=== PATIENT | male | born 1995 | race Caucasian/White ===

== ENCOUNTER → 2018-03-26 | Outpatient (REF) | payer BC ==
[2018-03-26 19:41] LABS: PLATELET COUNT, AUTOMATED 288 K/uL (150-450)
== END ==
PROVIDERS: ATTEND Nurse Practitioner Family
DX: R11.10 Vomiting, unspecified (principal)
CPT/HCPCS: 82040; 82247; 82310; 82374; 82435; 82565; 82947; 84075; 84132; 84155; 84295; 84450; 84460; 84520; 85025

== ENCOUNTER → 2018-03-29 | Outpatient (REF) | payer BC ==
[2018-03-29 12:45] LABS: PLATELET COUNT, AUTOMATED 279 K/uL (150-450)
== END ==
PROVIDERS: ATTEND Family Medicine
DX: R07.9 Chest pain, unspecified (principal); R11.0 Nausea; R53.83 Other fatigue
CPT/HCPCS: 82040; 82247; 82310; 82374; 82435; 82565; 82947; 83036; 84075; 84132; 84155; 84295; 84443; 84450; 84460; 84484; 84520; 85025; 85379; 85651; 86140; 86618

== ENCOUNTER 2018-04-02 01:21 | Emergency (ER) | payer BC ==
--- NOTE | 2018-04-02 01:29 | ER Report ---
History and Physical Time Seen By MD: 01:28 HPI/ROS CHIEF COMPLAINT: Chest tightness, nausea, vomiting, sinus problems HISTORY OF PRESENT ILLNESS: Patient is a 22-year-old male here with complaints of chest tightness which worsened this morning, nausea, vomiting since Thursday , headaches intermittently. Patient reports that his been seen several times by other physicians without a definitive diagnosis. Patient is frustrated that he has not been told what is causing his chest tightness and nausea symptoms. He is afebrile at time of reevaluation, hemodynamically stable and in no acute distress. REVIEW OF SYSTEMS: Constitutional: No fever, no chills. Eyes: No discharge. ENT: No sore throat. Cardiovascular: + chest pain, no palpitations. Respiratory: No cough, no shortness of breath. Gastrointestinal: No abdominal pain, + nausea w/ vomiting. Genitourinary: No hematuria. Musculoskeletal: No back pain. Skin: No rashes. Neurological: + intermittent headache. Allergies: Coded Allergies: No Known Drug Allergies (Unverified , 04/02/18) Home Meds Active Scripts Hydroxyzine Hcl (HYDROXYZINE HCL) 50 Mg Tablet, 50 MG PO QDAY, #30 TAB Prov:ALEXANDRU MUHAMMAD DO 04/02/18 Reported Medications Prednisone (PREDNISONE) 20 Mg Tablet, 20 MG PO QDAY, TAB 04/02/18 Ondansetron (ZOFRAN ODT) 4 Mg Tab.rapdis, 4 MG PO Q8H, TAB.MICHELLE 04/02/18 Promethazine Hcl (PROMETHAZINE HCL) 25 Mg Tablet, 25 MG PO Q8H, TAB 04/02/18 Constitutional Physical Exam General Appearance: The patient is alert, has no immediate need for airway protection and no signs of toxicity. NAD Eyes: Pupils equal and round no pallor or injection. ENT, Mouth: Mucous membranes are moist. Respiratory: There are no retractions, lungs are clear to auscultation. Cardiovascular: Regular rate and rhythm. Gastrointestinal: Abdomen is soft and non tender, no masses, bowel sounds normal. Neurological: No focal deficits Skin: Warm and dry, no rashes. Musculoskeletal: Neck is supple non tender. Extremities are nontender, nonswollen and have full range of motion. DIFFERENTIAL DIAGNOSIS: After history and physical exam differential diagnosis was considered for chest pain including but not limited to myocardial ischemia, pericarditis pulmonary embolus, chest wall pain, pleural inflammation and pulmonary infectious causes.shortness of breath including but not limited to pulmonary infectious process, COPD, asthma, pulmonary embolus and congestive heart failure. Medical Decision Making Data Points Laboratory Hematology Test 04/02/18 01:50 Red Blood Count 5.36 M/uL (4.00-5.60) Mean Corpuscular Volume 83.6 fL (80.0-96.0) Mean Corpuscular Hemoglobin 30.8 pg (26.0-33.0) Mean Corpuscular Hemoglobin Concent 36.8 g/dL (32.0-36.0) Red Cell Distribution Width 12.8 % (11.5-14.5) Mean Platelet Volume 7.2 fL (7.2-11.1) Neutrophils (%) (Auto) 76.7 % (39.4-72.5) Lymphocytes (%) (Auto) 16.0 % (17.6-49.6) Monocytes (%) (Auto) 6.5 % (4.1-12.4) Eosinophils (%) (Auto) 0.3 % (0.4-6.7) Basophils (%) (Auto) 0.5 % (0.3-1.4) Nucleated RBC Relative Count (auto) 0.1 /100WBC Neutrophils # (Auto) 6.6 K/uL (2.0-7.4) Lymphocytes # (Auto) 1.4 K/uL (1.3-3.6) Monocytes # (Auto) 0.6 K/uL (0.3-1.0) Eosinophils # (Auto) 0.0 K/uL (0.0-0.5) Basophils # (Auto) 0.0 K/uL (0.0-0.1) Nucleated RBC Absolute Count (auto) 0.01 K/uL Erythrocyte Sedimentation Rate 1 mm/HOUR (0-15) D-Dimer Quantitative (PE/DVT) 0.28 ug/ml (0-0.50) Sodium Level 137 mmol/L (137-145) Potassium Level 4.0 mmol/L (3.5-5.0) Chloride Level 100 mmol/L (98-107) Carbon Dioxide Level 23 mmol/L (22-30) Blood Urea Nitrogen 9 mg/dl (9-21) Creatinine 1.00 mg/dl (0.66-1.25) Glomerular Filtration Rate Calc > 60.0 Random Glucose 109 mg/dl (75-110) Calcium Level 9.7 mg/dl (8.4-10.2) Total Bilirubin 1.4 mg/dl (0.2-1.3) Aspartate Amino Transf (AST/SGOT) 20 U/L (0-35) Alanine Aminotransferase (ALT/SGPT) 33 U/L (0-56) Alkaline Phosphatase 38 U/L (0-126) Troponin I < 0.012 ng/ml Total Protein 7.7 g/dl (6.3-8.2) Albumin 4.8 g/dl (3.5-5.0) Chemistry Test 04/02/18 01:50 White Blood Count 8.6 k/uL (4.5-11.0) Red Blood Count 5.36 M/uL (4.00-5.60) Hemoglobin 16.5 g/dL (14.0-18.0) Hematocrit 44.8 % (42.0-52.0) Mean Corpuscular Volume 83.6 fL (80.0-96.0) Mean Corpuscular Hemoglobin 30.8 pg (26.0-33.0) Mean Corpuscular Hemoglobin Concent 36.8 g/dL (32.0-36.0) Red Cell Distribution Width 12.8 % (11.5-14.5) Platelet Count 274 K/uL (150-450) Mean Platelet Volume 7.2 fL (7.2-11.1) Neutrophils (%) (Auto) 76.7 % (39.4-72.5) Lymphocytes (%) (Auto) 16.0 % (17.6-49.6) Monocytes (%) (Auto) 6.5 % (4.1-12.4) Eosinophils (%) (Auto) 0.3 % (0.4-6.7) Basophils (%) (Auto) 0.5 % (0.3-1.4) Nucleated RBC Relative Count (auto) 0.1 /100WBC Neutrophils # (Auto) 6.6 K/uL (2.0-7.4) Lymphocytes # (Auto) 1.4 K/uL (1.3-3.6) Monocytes # (Auto) 0.6 K/uL (0.3-1.0) Eosinophils # (Auto) 0.0 K/uL (0.0-0.5) Basophils # (Auto) 0.0 K/uL (0.0-0.1) Nucleated RBC Absolute Count (auto) 0.01 K/uL Erythrocyte Sedimentation Rate 1 mm/HOUR (0-15) D-Dimer Quantitative (PE/DVT) 0.28 ug/ml (0-0.50) Glomerular Filtration Rate Calc > 60.0 Calcium Level 9.7 mg/dl (8.4-10.2) Total Bilirubin 1.4 mg/dl (0.2-1.3) Aspartate Amino Transf (AST/SGOT) 20 U/L (0-35) Alanine Aminotransferase (ALT/SGPT) 33 U/L (0-56) Alkaline Phosphatase 38 U/L (0-126) Troponin I < 0.012 ng/ml Total Protein 7.7 g/dl (6.3-8.2) Albumin 4.8 g/dl (3.5-5.0) Coagulation Test 04/02/18 01:50 D-Dimer Quantitative (PE/DVT) 0.28 ug/ml EKG/Imaging EKG Interpretation Test Reason : CHEST PAIN Blood Pressure : / mmHG Vent. Rate : 058 BPM Atrial Rate : 058 BPM P-R Int : 146 ms QRS Dur : 088 ms QT Int : 438 ms P-R-T Axes : -13 075 074 degrees QTc Int : 429 ms Sinus bradycardia Diffuse ST-T wave abnormalities raise concern for ischemia or other potential causes Abnormal ECG No previous ECGs available Confirmed by JON CANO ([id number]) on 04/02/2018 6:12:13 AM Monitor Interpretation: Normal Sinus Rhythm Imaging Location: [facility] Patient: Aristides Whaley : 1995 Visit/Account:[id number] Date of Sevice: 04/02/2018 CHEST PA AND LAT Additional pertinent History: Respiratory distress COMPARISON STUDIES: none FINDINGS: Support lines and catheters: None Lungs and Pleura: Lung ariza well expanded with no infiltrates or consolidations. No parenchymal mass lesions are seen. There are no effusions Heart and vasculature: Negative. Ariane and Mediastinum: Negative. Bones and Chest wall: Negative. Upper Abdomen: Negative. IMPRESSION: 1. Negative chest ED Course/Re-evaluation Clinical Indication for ER IV: Hydration, IV Access ED Course Patient is a 22-year-old male here with complaints of chest tightness since this morning, nausea, vomiting since Thursday, intermittent headaches and sinus pressure. He reports that he has been evaluated by multiple physicians without definitive diagnosis. Chest x-ray showed no acute findings. Troponin was negative in spite of persistent symptoms for the entire day making ischemia unlikely. EKG showed nonspecific ST changes without prior EKGs to compare to. D- dimer was negative making pulmonary embolism or clots unlikely. Patient received DuoNeb, methylprednisolone, fluid bolus, Reglan with significant relief of symptoms. Patient was placed on Atarax for outpatient treatment. ESR was negative making inflammatory condition or autoimmune disorder less likely. I discussed the findings with the patient and he voiced understanding. Patient was advised to follow-up with family doctor in the next 3 days. Decision to Disposition Date: Apr 02, 2018 Decision to Disposition Time: 03:00 Depart Departure Latest Vital Signs Impression: Primary Impression: Chest pain Additional Impression: Headache Condition: Improved Disposition: HOME OR SELF-CARE New Scripts Hydroxyzine Hcl (HYDROXYZINE HCL) 50 Mg Tablet 50 MG PO QDAY, #30 TAB Prov: ALEXANDRU MUHAMMAD DO 04/02/18 Patient Instructions: Chest Pain (ED), Hydroxyzine (By mouth) Additional Instructions: Please continue your medications as prescribed. Please take 1 tablet of Atarax daily. Please return promptly if you develop recurrent chest pain, shortness breath, headache, blurred vision, nausea, vomiting. Problem Qualifiers ALEXANDRU MUHAMMAD DO Apr 02, 2018 01:29
[2018-04-02] MEDS ORDERED: PRED20TA6 PO (01:33)
[2018-04-02] MEDS ORDERED: ONDA4TAB PO (01:33)
[2018-04-02] MEDS ORDERED: PROM-110 PO (01:33)
[2018-04-02] MEDS ORDERED: NS(*) 0.9% 1000 ML BAG 1,000 ML IV ONE (01:40)
[2018-04-02] MEDS ORDERED: methylPREDNIS SUCC 125 MG/2ML IVP ONE (01:40)
[2018-04-02] MEDS ORDERED: METOCLOPRAMIDE 10 MG/2 ML SDV IVP ONE (01:40)
[2018-04-02] MEDS: ALBUTEROL/IPRATROPIUM 3 ML NEB NEB SCH ×2 (01:54→02:00)
--- NOTE | 2018-04-02 01:57 | EKG ---
FACILITY: [facility] PATIENT NAME: MILANA MARTINO : [id number] MR: [id number] V: [id number] EXAM DATE: ORDERING PHYSICIAN: ALEXANDRU MUHAMMAD TECHNOLOGIST: MARCIE Anguiano Reason : CHEST PAIN Blood Pressure : / mmHG Vent. Rate : 058 BPM Atrial Rate : 058 BPM P-R Int : 146 ms QRS Dur : 088 ms QT Int : 438 ms P-R-T Axes : -13 075 074 degrees QTc Int : 429 ms Sinus bradycardia Diffuse ST-T wave abnormalities raise concern for ischemia or other potential causes Abnormal ECG No previous ECGs available Confirmed by JON CANO ([id number]) on 04/02/2018 6:12:13 AM Referred By: Confirmed By:JON CANO
[2018-04-02 02:29] LABS: PLATELET COUNT, AUTOMATED 274 K/uL (150-450)
--- NOTE | 2018-04-02 02:38 | RADIOLOGY IMAGING REPORT ---
FACILITY: [facility] PATIENT NAME: Aristides Whaley : 1995 MR: [id number] V: [id number] EXAM DATE: ORDERING PHYSICIAN: ALEXANDRU MUHAMMAD TECHNOLOGIST: Location: [facility] Patient: Aristides Whaley : 1995 Visit/Account:[id number] Date of Sevice: 04/02/2018 CHEST PA AND LAT Additional pertinent History: Respiratory distress COMPARISON STUDIES: none FINDINGS: Support lines and catheters: None Lungs and Pleura: Lung ariza well expanded with no infiltrates or consolidations. No parenchymal ma ss lesions are seen. There are no effusions Heart and vasculature: Negative. Ariane and Mediastinum: Negative. Bones and Chest wall: Negative. Upper Abdomen: Negative. IMPRESSION: 1. Negative chest Report Dictated By: Harrison Pimentel MD at 04/02/2018 2:33 AM Report E-Signed By: Harrison Pimentel MD at 04/02/2018 2:34 AM WSN:[id number]
[2018-04-02] MEDS ORDERED: hydrOXYzine 25 MG TAB PO ONE (02:55)
[2018-04-02] MEDS ORDERED: HYDR-4228 PO (02:57)
[2018-04-02 03:00] VITALS: BP 147/88
== END 2018-04-02 03:17 | disposition home or self-care (01) ==
LOC: ER 01:56
DX: R07.89 Other chest pain (principal); R51 Headache; R00.1 Bradycardia, unspecified; R06.00 Dyspnea, unspecified
CPT/HCPCS: 71046; 84484; 85025; 85379; 85651; 93005; 94640; 96361; 96374; 96375; 99284; J2765; J2930; J7030; J7620; 82040; 82247; 82310; 82374; 82435; 82565; 82947; 84075; 84132; 84155; 84295; 84450; 84460; 84520